=== PATIENT | female | born 1990 | race American Indian/Alaskan Native ===

== ENCOUNTER 2017-12-13 10:28 | Day surgery (SDC) | payer MEDICAID ==
[~2017-12-13 10:28] MED LIST: LACTATED RINGERS 1,000 ML IV SCH; VERSED IV NR
[2017-12-13] MEDS ORDERED: NACL BACTERIOSTATIC INFILTRATI ONE (14:32)
--- NOTE | 2017-12-13 15:23 | Anesthesia Consultation ---
Anesthesia Consult and Med Hx Date of service: 12/13/17 - Airway Anesthetic Teeth Evaluation: Good ROM Head & Neck: Adequate Mental/Hyoid Distance: Adequate Mallampati Class: Class II Intubation Access Assessment: Good - Pulmonary Exam CTA: Yes - Cardiac Exam Cardiac Exam: No Murmur - Pre-Operative Health Status ASA Pre-Surgery Classification: ASA2 Proposed Anesthetic Plan: General - Central Nervous System Hx Psychiatric Problems: Yes (PTSD) - Hematic Hx Anemia: Yes (past hx, denies having now) - Other Systems Hx Substance Use: Yes (Marijuana every other day- states stopped 21/2 mos ago) Hx Cancer: No
--- NOTE | 2017-12-13 15:23 | Anesthesia Day of Surgery ---
Anesthesia Day of Surgery - Day of Surgery Patient Examined: Yes Patient H&P Reviewed: Yes Patient is NPO: Yes
--- NOTE | 2017-12-13 15:50 | Short Stay Summary ---
Short Stay Documentation Date of service: 12/13/17 Narrative H&P: Pt is a 27yo BF LMP 11/21/17 presents for surgical evaluation and treatment of a Right hydrosalpinx and a Right complex ovarian cyst, that persisted despite Medical therapy. She is therefore scheduled for a Laparoscopic Right salpingectomy and Right Ovarian cystectomy. - History Principal diagnosis: Right hydrosalpinx and Right ovarian cyst H&P: obtained from office Past Medical History: other (anxiety) Past Surgical History: No surgical history Social history: no significant social history, single - Allergies and Medications Current Medications: Allergies No Known Allergies Allergy (Verified 12/13/17 15:21) Home Medications Medication Instructions Recorded Confirmed Last Taken Type Doxycycline [Vibramycin] 100 mg PO Q12HR 12/09/17 12/13/17 12/12/17 History metroNIDAZOLE [Metronidazole] 500 mg PO Q12H 12/09/17 12/13/17 12/12/17 History ALPRAZolam [Xanax TAB] 2 mg PO PRN PRN 12/13/17 12/13/17 12/12/17 History Active Medications Celecoxib (Celebrex) 200 mg PO PREOP NR Stop: 12/13/17 23:59 Famotidine (Pepcid) 20 mg PO PREOP NR Stop: 12/13/17 23:59 Gabapentin (Neurontin) 600 mg PO PREOP NR Stop: 12/13/17 23:59 Lactated Ringer's (Lactated Ringers) 1,000 mls @ 100 mls/hr IV DIRECT YONI Cefazolin Sodium (Ancef/Sterile Water 2 Gm/20 Ml) 2 gm in 20 mls @ 80 mls/hr IV PREOP NR; Protocol Midazolam HCl (Versed) 2 mg IV PREOP NR Stop: 12/13/17 23:59 - Physical exam General appearance: no acute distress Integumentary: no rash HEENT: Atraumatic Lungs: Clear to auscultation Breasts: deferred Heart: Regular rate Gastrointestinal: normal Female Genitourinary: deferred Rectal Exam: deferred Extremities: no ischemia, No edema Neurological: Normal gait, Normal speech - Brief post op/procedure progress note Date of procedure: 12/13/17 Pre-op diagnosis: 1. Pelvic pain 2. Right hydrosalpinx 3. Right complex ovarian cyst Post-op diagnosis: same (with Extensive pelvic adhesions) Procedure: 1. Laparoscopic right salpingectomy 2. Right ovarian cystectomy 3. Lysis of extensive pelvic adhesions Anesthesia: GETA Findings: A normal uterus. A right hydrosalpinx and right complex ovarian cyst. Extensive tubo-ovarian adhesions bilaterally. Pelvic adhesions in the pelvic cul-de-sac. Perihepatic adhesions. Surgeon: SONIYA PERSAUD Estimated blood loss: minimal Pathology: list (right fallopian tube) Specimen disposition: to lab Condition: stable - Hospital course Hospital course: Unremarkable. - Disposition Condition at discharge: Good Disposition: [id number] TO HOME OR SELFCARE - Discharge Diagnoses (1) Pelvic pain Status: Chronic (2) Hydrosalpinx Status: Resolved (3) Complex cyst of right ovary Status: Resolved (4) Pelvic adhesions Status: Resolved Short Stay Discharge Plan Activity: no restrictions Diet: regular Wound: open to air, keep clean and dry Follow up with: PRIMARY CAREMD [Primary Care Provider] - 7 Days SONIYA PERSAUD MD [Staff Physician] - 14 Days Prescriptions: ALPRAZolam [Xanax TAB] 2 mg PO PRN PRN #10 tablet PRN Reason: Anxiety oxyCODONE /ACETAMINOPHEN [Percocet 5/325] 1 tab PO Q6HR PRN #30 tablet PRN Reason: Pain
[2017-12-13] MEDS ORDERED: ANCEF/STERILE WATER 2 GM/20 ML 2 GM/20 ML SYRINGE IV NR (16:00)
[2017-12-13] MEDS ORDERED: PEPCID PO NR (16:00)
[2017-12-13] MEDS ORDERED: NEURONTIN PO NR (16:00)
[2017-12-13 16:09] LABS: Hematocrit 33.2 % (30.3-42.9); Hemoglobin 11.3 gm/dl (10.1-14.3)
[2017-12-13] MEDS ORDERED: DIPRIVAN 10 MG/ML IV ONE (16:12)
[2017-12-13] MEDS ORDERED: XYLOCAINE CARDIAC IV ONE (16:12)
[2017-12-13] MEDS ORDERED: SUBLIMAZE ONE (16:12)
[2017-12-13] MEDS ORDERED: ZEMURON IV ONE (16:12)
[2017-12-13] MEDS ORDERED: MARCAINE 0.5% 30 ML INFILTRATI ONE (16:40)
[2017-12-13] MEDS ORDERED: DECADRON ONE (16:48)
[2017-12-13] MEDS ORDERED: NEOSTIGMINE ONE (17:13)
[2017-12-13] MEDS ORDERED: ZOFRAN ONE (17:13)
[2017-12-13] MEDS ORDERED: ROBINUL ONE ×2 (17:14)
[2017-12-13] MEDS ORDERED: NACL 0.9% IR ONE ×2 (17:43)
[2017-12-13] MEDS ORDERED: MARCAINE 0.5% INFILTRATI ONE (17:43)
[2017-12-13] MEDS ORDERED: DILAUDID ONE (17:45)
[2017-12-13] MEDS ORDERED: LACTATED RINGERS 1,000 ML ONE (17:48)
--- NOTE | 2017-12-13 18:29 | Operative Report ---
Operative Report Operative Report: Date of procedure: 12/13/2017 Pre-operative diagnosis: 1. Pelvic pain 2. Right hydrosalpinx 3. Right complex ovarian cyst Post-operative diagnosis: Same with extensive bilateral tubo-ovarian adhesions Procedure name(s): 1. Laparoscopic right salpingectomy 2. Right ovarian cystectomy 3. Lysis of extensive pelvic adhesions Surgeon: Cullen Montenegro MD License Distributor: None Anesthesia: Gen. endotracheal intubation by Dr. Chairez EBL: 10 mL Findings: A normal uterus. A right hydrosalpinx and right complex ovarian cyst. Extensive tubo-ovarian adhesions bilaterally. Pelvic adhesions in the pelvic cul-de-sac. Perihepatic adhesions. Procedure: After the patient was correctly identified, she was prepped and draped in usual sterile fashion and placed in dorsolithotomy position. First the bladder was emptied using a straight catheter, A speculum was placed in the vaginal vault and anterior lip of the cervix was grasped using single-tooth tenaculum. The uterine manipulator was then placed and the tenaculum and speculum were removed. Attention was then turned to the abdomen where first a periumbilical incision was made using the skin knife. The Optiview trocar was inserted under direct visualization. After an adequate amount of abdominal insufflation, visualization of the pelvic organs found a normal uterus with a right hydrosalpinx and right complex ovarian cyst. There was extensive tubo- ovarian pelvic adhesions bilaterally and adhesions in the pelvic cul-de-sac. There was also perihepatic adhesions. Next a suprapubic and a right lateral incision was made and 5 mm trochars were used to aid in manipulation of the pelvic organs. First the tubo-ovarian adhesions were taken down using both sharp and blunt dissection thus freeing the tubes and ovaries bilaterally. The right ovary had multiple cysts which were ruptured intraoperatively. The tortuous right hydrosalpinx was excised by clamping and cauterizing and cutting across the tube along the mesosalpinx. The specimen was removed using the Endopouch and sent to pathology. Copious amounts of irrigation was then performed, and good hemostasis was assured. The Tisseel Sealant was sprayed in the cul-de-sac and across the tubo-ovarian adhesion sites. At this point the procedure was considered complete. The periumbilical incision was closed using the Colin-Seferino device. All instruments removed from the abdomen, and the abdomen was deflated. Each incision was closed using 4-0 Monocryl suture in a sub-cuticular fashion on the skin, followed by infiltration of 0.5% Marcaine solution. The uterine manipulator was removed, the patient tolerated the procedure well and was transferred to recovery room in stable condition.
[2017-12-13] MEDS ORDERED: DILAUDID IV PRN (18:41)
[2017-12-13 21:01] VITALS: BP 130/80
== END 2017-12-13 10:29 | disposition home or self-care (01) ==
LOC: OR 10:28
PROVIDERS: ATTEND Obstetrics & Gynecology
DX: N70.11 Chronic salpingitis (principal); K66.0 Peritoneal adhesions (postprocedural) (postinfection); F41.9 Anxiety disorder, unspecified; F43.10 Post-traumatic stress disorder, unspecified
CPT/HCPCS: 36415; 58661; 81025; 85014; 85018; 88302; A4217; J0690; J1100; J1170; J2001; J2250; J2405; J2704; J2710; J3010; J7120